=== PATIENT | male | born 1995 | race American Indian/Alaskan Native ===

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

== ENCOUNTER 2020-11-18 19:48 | Emergency (ER) | payer MEDICAID ==
--- NOTE | 2020-11-18 21:33 | XRay Report ---
LEFT ELBOW 4 VIEW(S) INDICATION / CLINICAL INFORMATION: PAIN RELATED TO FALL COMPARISON: None available. FINDINGS: BONES / JOINT(S): No acute fracture or subluxation. No significant arthritis. SOFT TISSUES: No significant abnormality. ADDITIONAL FINDINGS: None. Signer Name: Pool Hopkins MD Signed: 11/18/2020 9:28 PM Workstation Name: [id number]
[2020-11-19] MEDS ORDERED: IBUPROFEN 600 MG TAB PO ONE (00:56)
[2020-11-19] MEDS ORDERED: HYDROcodone/ACETAMINOPHEN 7.5-325MG TAB PO ONE (00:56)
[2020-11-19] MEDS ORDERED: ONDANSETRON 4 MG ODT TAB PO ONE (00:56)
--- NOTE | 2020-11-19 02:05 | Emergency Department Report ---
ED Fall HPI - General Chief Complaint: Extremity Injury, Upper Stated Complaint: LEFT ARM INJURY Source: patient Mode of arrival: Ambulatory - History of Present Illness Initial Comments: Patient is a 25-year-old male with a history of bipolar disorder who presents to the ED with complaint of acute onset persistent severe left forearm and left elbow pain as well as low back pain after he slipped and fell off a balcony floor about 7 hours ago, landed on the left forearm left elbow. Patient states that the pain is constant, worse with any active range of motion of left arm. Patient states that he has not taken any medications prior to arrival. Patient denies dizziness, syncope, seizures, suicidal ideation, homicidal ideations, neck injuries, headache, head injury, chest pain or shortness of breath, nausea and vomiting, loss of consciousness, numbness and tingling or weakness of upper and lower MD Complaint: fall -: Sudden, hour(s) (7) Fall From: standing, other (fell off a balcony) When Fall Occurred: 4-6 hours [employer] Fall Witnessed: yes, by bystander Place Fall Occurred: home Loss of Consciousness: none Prolonged Down Time?: no Symptoms Prior to Fall: none Location: back (lower back), other (Left elbow and left forearm pain; low back pain) Location - Extremities: Left: Elbow (pain), Forearm (pain) Severity: severe Severity scale (0 -10): 8 Quality: sharp, aching Context: tripped/slipped Associated Symptoms: denies. denies: headache, neck pain, numbness, weakness, chest paint, shortness of breath, abdominal pain, hematuria, unable to walk, lightheaded, vertigo, confusion, other - Related Data Home Medications Medication Instructions Recorded Confirmed Last Taken QUEtiapine [SEROquel] 25 mg PO QHS 01/07/15 10/03/16 01/06/15 Previous Rx's Medication Instructions Recorded Last Taken Type Baclofen 20 mg PO Q8H PRN #21 tablet 11/19/20 Unknown Rx Ibuprofen [Motrin] 800 mg PO Q8HR PRN #30 tablet 11/19/20 Unknown Rx traMADoL [Ultram] 50 mg PO Q6HR PRN #10 tablet 11/19/20 Unknown Rx Allergies Allergy/AdvReac Type Severity Reaction Status Date / Time No Known Allergies Allergy Verified 10/03/16 22:30 ED Review of Systems ROS: Stated complaint: LEFT ARM INJURY Other details as noted in HPI Constitutional: denies: chills, fever Eyes: denies: eye pain, eye discharge, vision change ENT: denies: ear pain, throat pain Respiratory: denies: cough, shortness of breath, wheezing Cardiovascular: denies: chest pain, palpitations Endocrine: no symptoms reported Gastrointestinal: denies: abdominal pain, nausea, diarrhea Genitourinary: denies: urgency, dysuria Musculoskeletal: back pain (lower back pain), arthralgia (left elbow pain), myalgia. denies: joint swelling Skin: denies: rash, lesions Neurological: denies: headache, weakness, paresthesias Psychiatric: denies: anxiety, depression Hematological/Lymphatic: denies: easy bleeding, easy bruising ED Past Medical Hx - Past Medical History Hx Seizures: Yes Hx Psychiatric Treatment: Yes (bipolar,) - Social History Smoking Status: Never Smoker Substance Use Type: None - Medications Home Medications: Home Medications Medication Instructions Recorded Confirmed Last Taken Type QUEtiapine [SEROquel] 25 mg PO QHS 01/07/15 10/03/16 01/06/15 History Baclofen 20 mg PO Q8H PRN #21 tablet 11/19/20 Unknown Rx Ibuprofen [Motrin] 800 mg PO Q8HR PRN #30 tablet 11/19/20 Unknown Rx traMADoL [Ultram] 50 mg PO Q6HR PRN #10 tablet 11/19/20 Unknown Rx ED Physical Exam - General Limitations: No Limitations General appearance: alert, in no apparent distress - Head Head exam: Present: atraumatic, normocephalic, normal inspection - Eye Eye exam: Present: normal appearance, PERRL, EOMI Pupils: Present: normal accommodation - ENT ENT exam: Present: normal exam, normal orophraynx, mucous membranes moist, TM's normal bilaterally, normal external ear exam - Neck Neck exam: Present: normal inspection, full ROM. Absent: tenderness - Respiratory Respiratory exam: Present: normal lung sounds bilaterally. Absent: respiratory distress, wheezes, rales, rhonchi, chest wall tenderness, accessory muscle use, decreased breath sounds, prolonged expiratory - Cardiovascular Cardiovascular Exam: Present: regular rate, normal rhythm, normal heart sounds. Absent: systolic murmur, diastolic murmur, rubs, gallop - GI/Abdominal GI/Abdominal exam: Present: soft, normal bowel sounds. Absent: tenderness, guarding, rebound, hyperactive bowel sounds, hypoactive bowel sounds, organomegaly - Extremities Exam Extremities exam: Present: normal inspection, tenderness (Palpable severe left elbow tenderness with limited ROM due to pain), normal capillary refill. Absent: full ROM (Range of motion of left elbow due to pain), pedal edema, joint swelling, calf tenderness - Back Exam Back exam: Present: normal inspection, full ROM, tenderness (Palpable lumbosacral paraspinal musculoskeletal), muscle spasm, paraspinal tenderness - Neurological Exam Neurological exam: Present: alert, oriented X3, CN II-XII intact, normal gait, reflexes normal - Psychiatric Psychiatric exam: Present: normal affect, normal mood - Skin Skin exam: Present: warm, dry, intact, normal color. Absent: rash ED Course Vital Signs 11/18/20 20:47 Temperature 99.1 F Pulse Rate 79 Respiratory 18 Rate O2 Sat by Pulse 100 Oximetry ED Medical Decision Making - Radiology Data Radiology results: report reviewed, image reviewed [address] [address] XRay Report Signed Patient: LILIYA HSU JR. MR#: [id number] : 1995 Acct:[id number] Age/Sex: 25 / M ADM Date: 11/18/20 Loc: ED Attending Dr: Ordering Physician: ABIDA ESQUIVEL Date of Service: 11/18/20 Procedure(s): XR elbow 3+V LT Accession Number(s): [id number] cc: ABIDA ESQUIVEL Fluoro Time In Minutes: LEFT ELBOW 4 VIEW(S) INDICATION / CLINICAL INFORMATION: PAIN RELATED TO FALL COMPARISON: None available. FINDINGS: BONES / JOINT(S): No acute fracture or subluxation. No significant arthritis. SOFT TISSUES: No significant abnormality. ADDITIONAL FINDINGS: None. Signer Name: Shanda Hopkins MD Signed: 11/18/2020 9:28 PM Workstation Name: [id number] Transcribed By: Dictated By: SHANDA HOPKINS Electronically Authenticated By: SHANDA HOPKINS Signed Date/Time: 11/18/202127 DD/ 26 TD/TT: - Medical Decision Making This is a 25-year-old male with a history of bipolar disorder who presents to the ED with complaint of acute onset persistent severe left forearm and left elbow pain as well as low back pain after he slipped and fell off a balcony gabby or about 7 hours ago, landed on the left forearm left elbow. Patient states that the pain is constant, worse with any active range of motion of left arm. Patient states that he has not taken any medications prior to arrival. In the ED, alba is alert and oriented x3 and is in no acute distress but appears to be in pain. Left elbow x-ray shows no acute fractures or subluxations. Patient was treated for pain in the ED and on reevaluation, patient's pain is well controlled with medications. Patient left arm was immobilized in an arm sling and patient will discharge home on pain medications and muscle relaxants and advised to follow-up with his primary care physician in 5 to 7 days for reevaluation. Patient was advised to return to the ED immediately if symptoms progress. - Differential Diagnosis Forearm fracture; Elbow fracture; forearm contusion; muscle spasm Critical care attestation.: If time is entered above; I have spent that time in minutes in the direct care of this critically ill patient, excluding procedure time. ED Disposition Clinical Impression: Contusion of left forearm, initial encounter, Spasm of muscle of lower back Sprain of left elbow Qualifiers: Encounter type: initial encounter Qualified Code(s): S53.402A - Unspecified sprain of left elbow, initial encounter Disposition: DC-01 TO HOME OR SELFCARE Is pt being admited?: No Does the pt Need Aspirin: No Condition: Stable Instructions: Muscle Cramps and Spasms, [id number], Back Injury Prevention, [id number], Contusion, Kqwf-[id number]-Expl, Elbow Sprain Additional Instructions: The x-ray of your left elbow showed no acute fractures or subluxations. Therefore your injuries are due to muscle strain, muscle spasm or contusion of the left arm and low back. Therefore take medications with food as needed for pain, drink plenty of fluids and follow-up with your primary care physician in 5 to 7 days for reevaluation. Return to the ED immediately if symptoms get worse. Prescriptions: Baclofen 20 mg PO Q8H PRN #21 tablet PRN Reason: Muscle Spasm Ibuprofen [Motrin] 800 mg PO Q8HR PRN #30 tablet PRN Reason: Pain , Severe (7-10) traMADoL [Ultram] 50 mg PO Q6HR PRN #10 tablet PRN Reason: Pain Referrals: [facility] [Provider Group] - 3-5 Days Forms: Work/School Release Form(ED) Time of Disposition: 02:02 Print Language: CAMBODIAN
[2020-11-19 03:33] VITALS: BP 126/62
== END 2020-11-19 02:40 | disposition home or self-care (01) ==
LOC: ED 19:48
DX: S53.402A Unspecified sprain of left elbow, initial encounter (principal); S40.022A Contusion of left upper arm, initial encounter; M62.830 Muscle spasm of back; R56.9 Unspecified convulsions; F31.9 Bipolar disorder, unspecified; Z79.1 Long term (current) use of non-steroidal anti-inflammatories (NSAID); Z79.899 Other long term (current) drug therapy; W01.0XXA Fall on same level from slipping, tripping and stumbling without subsequent striking against object, initial encounter; Y93.89 Activity, other specified; Y92.89 Other specified places as the place of occurrence of the external cause; Y99.8 Other external cause status
CPT/HCPCS: Q0162

== ENCOUNTER 2021-04-20 18:41 | Emergency (ER) | payer MEDICAID ==
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
[2021-04-20 19:20] LABS: Hematocrit 41.6 % (35.5-45.6); Hemoglobin 13.9 gm/dl (11.8-15.2); Mean Corpuscular HGB Conc 33 % (32-34); Mean Corpuscular Volume 89 fl (84-94); Platelet Count 301 K/mm3 (140-440); Red Blood Count 4.68 M/mm3 (3.65-5.03); Red Cell Distribution Width 13.1 % (13.2-15.2)
[2021-04-20 19:38] LABS: BUN/Creatinine Ratio 15; Blood Urea Nitrogen 12 mg/dL (9-20); Calcium 9.1 mg/dL (8.4-10.2); Hemolysis Index 11
[2021-04-20 22:53] LABS: Bilirubin,Urine NEG (Negative); Blood,Urine NEG (Negative); Color,Urine Yellow (Yellow); Mucus,Urine 3+ /HPF; Urobilinogen,Urine < 2.0 mg/dL (<2.0)
[2021-04-20 22:56] LABS: Amphetamine Screen,Urine Negative; Benzodiazepines Screen,Urine Negative; Cannabinoid Screen,Urine Negative; Cocaine Screen,Urine Negative; Methadone Screen,Urine Negative; Opiate Screen,Urine Negative
--- NOTE | 2021-04-21 00:09 | Event Note ---
Date: 04/21/21 Medically cleared
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
[2021-04-21] MEDS ORDERED: FLUoxetine 10 MG TAB PO SCH (10:00)
[2021-04-21] MEDS ORDERED: HALOPERIDOL LACTATE 5 MG/1 ML INJ IM PRN (10:10)
[2021-04-21] MEDS ORDERED: ACETAMINOPHEN 325 MG TAB PO PRN (10:10)
[2021-04-21] MEDS ORDERED: LORazepam 2 MG/ML VIAL IM PRN (10:10)
[2021-04-21] MEDS: QUEtiapine 25 MG TAB PO SCH ×2 (10:10→22:08)
[2021-04-21] MEDS ORDERED: diphenhydrAMINE 25 MG CAP PO PRN (10:10)
[2021-04-21] MEDS: DIVALPROEX DR 125 MG TAB PO SCH ×2 (10:10→22:08)
--- NOTE | 2021-04-21 10:12 | Event Note ---
Date: 04/21/21 The patient was evaluated in the emergency department for symptoms described in the history of present illness. He/she was evaluated in the context of the global COVID-19 pandemic, which necessitated consideration that the patient might be at risk for infection with the virus that causes COVID-19. Institutional protocols and algorithms that pertain to the evaluation of patients at risk for COVID-19 are in a state of rapid change based on information released by regulatory bodies including the CDC and federal and state organizations. These policies and algorithms were followed during the patient's care in the emergency department. Please note that these policies, procedures and recommendations changed on a rapid basis. Laboratory studies, ER documentation, psychiatric documentation nursing and ancillary documentation reviewed and appreciated. The patient was deemed medically suitable for psychiatric placement and disposition this morning. The patient is resting comfortably in his chair, and he is in no acute distress. Nursing team endorses no acute issues or concerns. Patient is documented as having watched TV, and eating meals without difficulty. This patient remains medically suitable for psychiatric placement and disposition at this time. As needed medications ordered. Covid swab pending Vital Signs 04/20/21 04/20/21 04/20/21 19:28 19:59 22:31 Temperature 98.5 F 97.7 F Pulse Rate 62 60 Respiratory 20 18 20 Rate Blood Pressure 146/76 120/59 [Left] O2 Sat by Pulse 100 100 99 Oximetry Lab Results 04/20/21 04/20/21 04/20/21 Range/Units 19:01 19:01 22:36 WBC (4.5-11.0) K/mm3 RBC (3.65-5.03) M/mm3 Hgb (11.8-15.2) gm/dl Hct (35.5-45.6) % MCV (84-94) fl MCH (28-32) pg MCHC (32-34) % RDW (13.2-15.2) % Plt Count (140-440) K/mm3 Sodium 137 (137-145) mmol/L Potassium 4.0 (3.6-5.0) mmol/L Chloride 103.3 (98-107) mmol/L Carbon Dioxide 27 (22-30) mmol/L Anion Gap 11 mmol/L BUN 12 (9-20) mg/dL Creatinine 0.8 (0.8-1.3) mg/dL Estimated GFR > 60 ml/min BUN/Creatinine Ratio 15 % Glucose 86 (75-100) mg/dL Calcium 9.1 (8.4-10.2) mg/dL Urine Color (Yellow) Urine Turbidity (Clear) Urine pH (5.0-7.0) Ur Specific [place] (1.003-1.030) Urine Protein (Negative) mg/dL Urine Glucose (UA) (Negative) mg/dL Urine Ketones (Negative) mg/dL Urine Blood (Negative) Urine Nitrite (Negative) Urine Bilirubin (Negative) Urine Urobilinogen (<2.0) mg/dL Ur Leukocyte Esterase (Negative) Urine WBC (Auto) (0.0-6.0) /HPF Urine RBC (Auto) (0.0-6.0) /HPF Urine Mucus /HPF Urine Opiates Screen Negative Urine Methadone Screen Negative Ur Barbiturates Screen Negative Ur Phencyclidine Scrn Negative Ur Amphetamines Screen Negative U Benzodiazepines Scrn Negative Urine Cocaine Screen Negative U Marijuana (THC) Screen Negative Drugs of Abuse Note Disclamer Plasma/Serum Alcohol < 0.01 (0-0.07) % 04/20/21 04/20/21 Range/Units 22:36 Unknown WBC 4.4 L (4.5-11.0) K/mm3 RBC 4.68 (3.65-5.03) M/mm3 Hgb 13.9 (11.8-15.2) gm/dl Hct 41.6 (35.5-45.6) % MCV 89 (84-94) fl MCH 30 (28-32) pg MCHC 33 (32-34) % RDW 13.1 L (13.2-15.2) % Plt Count 301 (140-440) K/mm3 Sodium (137-145) mmol/L Potassium (3.6-5.0) mmol/L Chloride (98-107) mmol/L Carbon Dioxide (22-30) mmol/L Anion Gap mmol/L BUN (9-20) mg/dL Creatinine (0.8-1.3) mg/dL Estimated GFR ml/min BUN/Creatinine Ratio % Glucose (75-100) mg/dL Calcium (8.4-10.2) mg/dL Urine Color Yellow (Yellow) Urine Turbidity Clear (Clear) Urine pH 5.0 (5.0-7.0) Ur Specific [place] 1.028 (1.003-1.030) Urine Protein 30 mg/dl (Negative) mg/dL Urine Glucose (UA) Neg (Negative) mg/dL Urine Ketones Tr (Negative) mg/dL Urine Blood Neg (Negative) Urine Nitrite Neg (Negative) Urine Bilirubin Neg (Negative) Urine Urobilinogen < 2.0 (<2.0) mg/dL Ur Leukocyte Esterase Neg (Negative) Urine WBC (Auto) 4.0 (0.0-6.0) /HPF Urine RBC (Auto) 2.0 (0.0-6.0) /HPF Urine Mucus 3+ /HPF Urine Opiates Screen Urine Methadone Screen Ur Barbiturates Screen Ur Phencyclidine Scrn Ur Amphetamines Screen U Benzodiazepines Scrn Urine Cocaine Screen U Marijuana (THC) Screen Drugs of Abuse Note Plasma/Serum Alcohol (0-0.07) %
[2021-04-21 21:01] VITALS: BP 104/57
== END 2021-04-21 23:38 | disposition still patient (30) ==
LOC: ED 18:41
DX: R45.851 Suicidal ideations (principal); R45.850 Homicidal ideations; R56.9 Unspecified convulsions; F31.9 Bipolar disorder, unspecified; Z20.822 Contact with and (suspected) exposure to COVID-19
CPT/HCPCS: 36415; 80048; 80307; 81001; 85027; 99285; U0003; 80320; 99284; G0480